=== PATIENT | male | born 1980 | race Caucasian/White ===

== ENCOUNTER 2019-04-01 19:16 | Emergency (ER) | payer MEDICAID ==
[2019-04-01] MEDS ORDERED: Ondansetron 4 MG/2 ML SDV IVPUSH ONE (20:11)
[2019-04-01] MEDS ORDERED: Naloxone 0.4 MG/ML SDV IVPUSH PRN (20:15)
[2019-04-01] MEDS ORDERED: Sodium Chloride 0.9% 1,000 ML IV ONE (20:16)
--- NOTE | 2019-04-01 20:17 | EDM.PDOCBH ---
ED HPI GENERAL MEDICAL PROBLEM - General Chief Complaint: Drug or Alcohol Abuse Stated Complaint: [facility] Time Seen by Provider: 04/01/19 20:03 Source of Information: Reports: Patient History Limitations: Reports: No Limitations - History of Present Illness INITIAL COMMENTS - FREE TEXT/NARRATIVE: Patient is a 38-year-old male who was found by law enforcement with a syringe in his lap unconscious apneic in his vehicle that was located in a gas station parking lot. Patient was administered 2 mg of intranasal nasal Narcan and also 2 mg IVP. Upon presentation to the ED patient is alert and oriented 3. 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 States he was smoking marijuana with a female he picked up at a local liquor store. He did not know the female. He questions if the marijuana was laced with fentanyl. With examination he offers no complaints except for nausea. Otherwise he denies any chest pain, shortness of breath, abdominal pain, or any additional c/o's. - Related Data Allergies Allergy/AdvReac Type Severity Reaction Status Date / Time Sulfa (Sulfonamide Allergy Hives Verified 04/01/19 19:19 Antibiotics) Home Meds: Home Meds . [No Known Home Meds] 04/01/19 [History] Past Medical History - Past Health History Medical/Surgical History: Denies Medical/Surgical History Social & Family History - Tobacco Use Smoking Status *Q: Never Smoker - Caffeine Use Caffeine Use: Reports: Energy Drinks, Soda - Recreational Drug Use Recreational Drug Use: Yes Drug Use in Last 12 Months: Yes Recreational Drug Type: Reports: Amphetamines (Speed), Marijuana/Hashish - Living Situation & Occupation Living situation: Reports: (), with Family (2 kids) Occupation: Employed ([employer]) ED ROS GENERAL - Review of Systems Review Of Systems: ROS reveals no pertinent complaints other than HPI. ED EXAM, BEHAVIORAL HEALTH - Physical Exam Exam: See Below Exam Limited By: No Limitations General Appearance: Alert, WD/WN, No Apparent Distress Eye Exam: Bilateral Eye: Normal Inspection, PERRL Ears: Hearing Grossly Normal Nose: Normal Inspection Throat/Mouth: Normal Inspection, Normal Oropharynx, Normal Voice, No Airway Compromise Head: Atraumatic, Normocephalic Neck: Normal Inspection, Supple, Non-Tender, Full Range of Motion Respiratory/Chest: No Respiratory Distress, Lungs Clear, Normal Breath Sounds, No Accessory Muscle Use, Chest Non-Tender Cardiovascular: Normal Peripheral Pulses, Regular Rate, Rhythm, No Murmur GI/Abdominal: Normal Bowel Sounds, Soft, Non-Tender, No Organomegaly, No Distention Back Exam: Normal Inspection Extremities: Normal Inspection Neurological: Alert, Normal Mood/Affect, CN II-XII Intact, Normal Cognition, No Motor/Sensory Deficits, Oriented x 3 Psychiatric: Alert, Normal Affect, Normal Cognition, Normal Mood, Oriented Skin Exam: Warm, Dry, Intact, Normal color, No rash COURSE, BEHAVIORAL HEALTH COMP - Course Vital Signs: Last Vital Signs Temp 96.5 F 04/01/19 19:20 Pulse 93 04/01/19 19:20 Resp 18 04/01/19 19:20 BP 144/102 H 04/01/19 19:20 Pulse Ox 95 04/01/19 19:20 Orders, Labs, Meds: Laboratory Tests 04/01/19 04/01/19 Range/Units 20:26 20:26 WBC 6.57 (4.23-9.07) K/mm3 RBC 4.62 L (4.63-6.08) M/mm3 Hgb 15.2 (13.7-17.5) gm/dl Hct 42.2 (40.1-51.0) % MCV 91.3 (79.0-92.2) fl MCH 32.9 H (25.7-32.2) pg MCHC 36.0 H (32.2-35.5) g/dl RDW Std Deviation 42.4 (35.1-43.9) fL Plt Count 247 (163-337) K/mm3 MPV 9.8 (9.4-12.3) fl Neutrophils % (Manual) 55 (40-60) % Band Neutrophils % 0 (0-10) % Lymphocytes % (Manual) 35 (20-40) % Atypical Lymphs % 0 % Monocytes % (Manual) 9 (2-10) % Eosinophils % (Manual) 0 L (0.8-7.0) % Basophils % (Manual) 1 (0.2-1.2) Platelet Estimate Adequate RBC Morph Comment Normal Sodium 138 (136-145) mEq/L Potassium 3.4 L (3.5-5.1) mEq/L Chloride 103 (98-107) mEq/L Carbon Dioxide 24 (21-32) mEq/L Anion Gap 14.4 (5-15) BUN 16 (7-18) mg/dL Creatinine 1.1 (0.7-1.3) mg/dL Est Cr Clr Drug Dosing 109.60 mL/min Estimated GFR (MDRD) > 60 (>60) mL/min BUN/Creatinine Ratio 14.5 (14-18) Glucose 124 H (74-106) mg/dL Calcium 8.6 (8.5-10.1) mg/dL Total Bilirubin 0.2 (0.2-1.0) mg/dL AST 411 H (15-37) U/L ALT 888 H (16-63) U/L Alkaline Phosphatase 122 H (46-116) U/L Troponin I < 0.017 (0.00-0.056) ng/mL Total Protein 7.2 (6.4-8.2) g/dl Albumin 3.5 (3.4-5.0) g/dl Globulin 3.7 gm/dL Albumin/Globulin Ratio 1.0 (1-2) Ethyl Alcohol 0.10 (0.00) gm% Medications Discontinued Medications Generic Name Dose Route Start Last Admin Trade Name Freq PRN Reason Stop Dose Admin Sodium Chloride 1,000 mls @ 250 mls/hr 04/01/19 20:16 04/01/19 20:23 Normal Saline IV 04/02/19 00:15 250 mls/hr ONETIME ONE Administration Naloxone HCl 0.4 mg 04/01/19 20:15 Narcan IVPUSH ONETIME PRN Oversedation Ondansetron HCl 4 mg 04/01/19 20:11 04/01/19 20:15 Zofran IVPUSH 04/01/19 20:12 4 mg ONETIME ONE Administration Re-Assessment/Re-Exam: On exam patient is alert and oriented 3. His blood pressures 144/102. Heart rate 93. Temp is 96.5. Respiratory rate is 18 with O2 sats of 95% on room air. He complains of mild nausea which is a adverse side effect after being administered Narcan. Patient received 4 mg in total of Narcan via intranasal and also IV. Patient does carry a history of heroin use in his 20s and denies any recent injection of any opiates. He was found with a syringe in his lap. Patient currently offers no additional complaints. IV has been established by EMS. Initial labs and studies include CBC, chem 14, urine drug screen, troponin, UA, serum EtOH, and EKG. IV fluids and Zofran have been ordered. In addition I also ordered Narcan 0.4 mg IV push when necessary for oversedation. EKG discussed with Dr. Lee. Abnormal EKG. Recommended cardiac labs. Labs reviewed: CBC indicated a normal white blood cell count, hemoglobin, and platelet count. Sodium 138. Potassium mildly low at 3.4. Creatinine 1.1. Glucose 124. AST 411. ALT 4080. Alk phosphatase 122. Troponin normal. Serum EtOH is 0.10. Patient has not provided a urine sample. 8 Patients vitals are stable. He offers no complaints. IVF's running. I have ordered 2nd troponin to be obtained at 2230. If troponin negative will discharge patient home as long as he remains stable and has no further apneic events. Patient will have been here for 4hrs + at that time. Per nursing staff patient has eloped. Departure - Departure Time of Disposition: 22:05 Disposition: Eloped 07 Condition: Good Clinical Impression: Acute alteration in mental status, Life threatening medical illness - Discharge Information Referrals: PCP,None [Primary Care Provider] -
== END 2019-04-01 22:08 | disposition left against medical advice (07) ==
LOC: JD.ED 19:16
DX: R41.82 Altered mental status, unspecified (principal); Z88.2 Allergy status to sulfonamides
CPT/HCPCS: 36415; 80053; 80320; 84484; 85007; 85027; 93005; 96361; 96374; 99284; J2405; J7040; 99283; G0480